=== PATIENT | female | born 1985 | race Caucasian/White ===

== ENCOUNTER 2023-08-21 20:17 | Emergency (ER) | payer OTHER, SELFPAY ==
[2023-08-21 20:23] VITALS: BP 146/84; PULSE 78; RESP 18; TEMP 36.4; O2SAT 98; BMI 38.0
--- NOTE | 2023-08-21 20:35 | ED_ITS ---
HPI - Nausea/Vomiting/Diarrhea General: Chief complaint: Nausea/Vomiting/Diarrhea Stated complaint: posible poison n/v/d..anxiety Time Seen by Provider: 08/21/23 20:34 History of Present Illness: 37-year-old female comes in today for co mplaints of nausea vomiting and some diarrhea after eating some wild vitamins. Patient appears nontoxic. Patient appears in no acute distress. Patient brought a sample of the onion to verify what she had eaten. Associated nausea: Yes Associated symtoms: Reports nausea Review of Systems General: Reports: 10 or more systems reviewed and unremarkable except in HPI and below GI: Reports: nausea, vomiting and diarrhea Physical Exam Const: COMMON NORMALS: alert HENMT: COMMON NORMALS: normocephalic HEAD & SCALP: normocephalic Resp: COMMON NORMALS: normal respiratory effort Cardio: COMMON NORMALS: regular rate and regular rhythm RATE: regular rate RHYTHM: regular rhythm GI: COMMON NORMALS: Soft to palpation and non-tender PALPATION: Yes Soft to palpation Back/Pelvis: COMMON NORMALS: thoracic and lumbar spine normal to inspection Extremity: COMMON NORMALS: full ROM Neuro: SENSORIUM/ORIENTATION: Yes alert Skin: COMMON NORMALS: turgor normal GENERAL SKIN EXAM: turgor normal Course Vital Signs: Vital signs: Vital Signs Temperature 97.5 F L 08/21/23 20:23 Pulse Rate 78 08/21/23 20:23 Respiratory Rate 18 08/21/23 20:23 Blood Pressure 146/84 08/21/23 20:23 Pulse Oximetry 98 08/21/23 20:23 Oxygen Delivery Me thod Room Air 08/21/23 20:23 MDM - Nausea/Vomiting/Diarrhea Medical Decision Making 37-year-old female comes in today with complaints of nausea and vomiting and diarrhea that started this evening after eating a wild onion. On exam patient appears well. Patient states that she feels better since arriving to the ER and has been able to drink water and hold it down. Patient appears nontoxic. Abdomen is soft and nontender. Skin was warm and dry. Vital signs are normal. Differential diagnosis includes food poisoning, gastroenteritis, gallbladder disease, enterocolitis. No signs of severe illness or injury is noted at this time. Reassured patient that the plan she brought and appears to be a domestic onion. Suspect them probably was and that went wild and patient should do well. Discussed reasons for follow-up or return to the ER for worsening symptoms. No radiology studies performed this visit Discharge Plan Discharge Patient Disposition: Home Clinical Impression: Food poisoning Condition: Stable Discharge Orders: Discharge ED (Routine); Ordered 08/21/23 Ordered By: Jonny Perez Discharge Diet: Usual diet Discharge Activity: Increase activity as tolerated Patient Instructions: Food Poisoning (ED) Activity Restrictions/Additional Instructions: Drink plenty water and fluids. Frequent sips of fluids and to maintain hydration. Follow-up with primary care as needed. Return to ED for worsening symptoms such as high fever, blood in vomit or stool, or worsening abdominal pain. Most people resolve food poisoning within 24 to 48 hours. Coding Level of Care Code ED Science Specialist for Corry Eden
[2023-08-21 21:16] VITALS: BP 127/86; PULSE 74; RESP 18; O2SAT 96
== END 2023-08-21 21:17 | disposition home or self-care (01) ==
PROVIDERS: Emergency Provider Nurse Practitioner Family
DX: A05.9 Bacterial foodborne intoxication, unspecified (principal)
CPT/HCPCS: 99281

== ENCOUNTER 2024-05-14 01:00 | Emergency (ER) | payer OTHER, SELFPAY ==
[2024-05-14 01:07] VITALS: BP 131/79; PULSE 83; RESP 18; TEMP 36.5; O2SAT 97; BMI 39.5
[2024-05-14 01:30] VITALS: BP 105/77; PULSE 80; RESP 16; O2SAT 93
[2024-05-14 02:48] VITALS: BP 132/71; PULSE 83; O2SAT 96
[2024-05-14 02:50] LABS: Basophils % 0.3 %; Eosinophils % 0.3 %; Hematocrit 41.6 % (36-47); Lymphocytes # 1.1 10^3/uL (0.8-4.8); Lymphocytes % 12.8 %; Mean Corpuscular HGB Conc 31.7 g/dL (30-55); Mean Corpuscular Hemoglobin 25.2 pg (27-33); Mean Corpuscular Volume 79.4 fl (85-98); Mean Platelet Volume 10.5 fL (7.4-10.4); Monocytes # 0.5 10^3/uL (0.2-0.9); Monocytes % 5.6 %; Neutrophils # 7.12 10^3/uL (1.8-7.7); Neutrophils % 80.9 %; Nucleated Red Blood Cells % 0 %; Platelet Count 273 10^3/cmm (157-399); Red Blood Count 5.24 10^6/uL (3.85-5.65); Red Cell Distribution Width 13.3 % (12.1-15.1); White Blood Count 8.81 10^3/uL (3.29-11.43)
[2024-05-14] MEDS: sodium chloride 0.9% 1,000 ML 999 ML IV (03:02)
[2024-05-14 03:14] LABS: Alanine Aminotransferase 24 U/L (0-33); Albumin Level 4.3 g/dL (3.5-5.2); Alkaline Phosphatase 98 U/L (35-105); Anion Gap 14.1 (5-19); Aspartate Amino Transferase 17 U/L (0-32); Blood Urea Nitrogen 8 mg/dL (6-20); Calcium 9.7 mg/dL (8.5-10.5); Carbon Dioxide 25 mmol/L (22-29); Chloride 103 mmol/L (98-107); Creatinine Clr Calc Pharmacy 168.2559; Globulin 3.1 g/dL (1.3-4.6); Glomerular Filtration Rate 110.7 mL/min (90-130); Glucose 114 mg/dL (65-115); Osmolality Calculated 285 mOsm/kg (285-295); Potassium 4.1 mmol/L (3.5-5.1); Sodium 138 mmol/L (136-145); Total Bilirubin 0.3 mg/dL (0.15-1.2); Total Protein 7.4 g/dL (6.6-8.7)
[2024-05-14 03:25] LABS: Bilirubin Urine Negative (Negative); Blood Urine Negative (Negative); Glucose Urine UA Negative (Normal); Ketones Urine Negative (Negative); Leukocyte Esterase Urine Negative (Negative); Nitrate Urine Negative (Negative); Protein Urine Negative (Negative); Specific Gravity, Urine 1.001 (1.005-1.030); Urine Appearance Clear (CLEAR); Urine Color Yellow (Yellow); Urobilinogen Urine 0.2 mg/dL (Negative)
[2024-05-14 03:29] VITALS: BP 112/72; PULSE 78; O2SAT 93
[2024-05-14 03:30] LABS: Add Urine Microscopic? YES; Bacteria Urine Trace /hpf; Hyaline Casts Urine 0-4 /lpf; RBC Urine 0-2 /hpf (0-2); Squamous Epithelial Cell Urine 0-5 /hpf (0-5); WBC Urine 0-5 /hpf (0-5)
[2024-05-14 04:18] VITALS: BP 101/69; PULSE 76; O2SAT 93
--- NOTE | 2024-05-14 04:37 | ED_ITS ---
HPI - Syncope 2 General: Chief Complaint: Syncope Stated Complaint: ABD Pain Time Seen by Provider: 05/14/24 01:57 Source: patient and family Mode of arrival: ambulatory Limitations: no limitations History of Present Illness: Patient came here for an episode of syncope. She reports she has having anxiety attack in bed so she went to the kitchen to eat something the movie her sugar was low and when she was eating something she started to feel lightheaded again and so she laid down on the floor her put her feet up and she almost passed out. She made it back to her bed and after being there went to go to the restroom after going to the restroom she was getting back to the bed and she passed out completely for a short moment. No fall, no head injury no seizure activity. Related Data Allergies Allergy/AdvReac Type Severity Reaction Status Date / Time No Known Allergies Allergy Verified 08/21/23 20:28 Review of Systems 2 General: Reports: 10 or more systems reviewed and unremarkable except in HPI and below [facility] ED 2 Female Reproductive History: Date of last menstrual period: 04/23/24 Physical Exam 2 Const: COMMON NORMALS: no acute distress, patient oriented x3, healthy appearing, alert and well nourished GENERAL APPEARANCE: well kempt and well developed NUTRITIONAL APPEARANCE: obese HENMT: COMMON NORMALS: normocephalic, atraumatic, external ears normal and moist oral mucous membranes HEAD & SCALP: normocephalic and atraumatic E XTERNAL EAR: Yes external ears normal Eye: COMMON NORMALS: Equal, round and reactive pupils present, EOMs intact bilaterally and conjunctivae normal CONJUNCTIVA: Yes conjunctivae normal P UPIL: Yes Equal, round and reactive pupils present Neck/C-Spine: COMMON NORMALS: full ROM, no lymphadenopathy and supple Chest: CHEST: Yes Symmetrical chest wall rise and No Surgical scars present (Chest) Resp: COMMON NORMALS: normal respiratory effort, No retractions, No use of accessory muscles and clear to auscultation bilaterally AUSCULTATION: clear to auscultation bilaterally Cardio: COMMON NORMALS: regular rate, regular rhythm, S1 normal heart sound present, S2 normal heart sound present, No gallops present (Cardio), No clicks present (Cardio), No murmurs present (Cardio) and No rub (Cardio) RATE: r egular rate RHYTHM: regular rhythm HEART SOUNDS: S1 normal heart sound present, S2 normal heart sound present and no murmurs PERIPHERAL PULSES: o ther (Radial pulses 2+ and symmetric) GI: COMMON NORMALS: Soft to palpation, non-tender and no masses INSPECTION: No abdominal distension PALPATION: Yes Soft to palpation, No Guarding due to palpation present (GI) and No Rebound tenderness present : COMMON NORMALS: Yes no CVA tenderness BLADDER/KIDNEY EXAM: Yes no CVA tenderness Back/Pelvis: COMMON NORMALS: no CVA tenderness Extremity: COMMON NORMALS: normal to inspection, full ROM, capillary refill normal and no clubbing, cyanosis or edema Neuro: COMMON NORMALS: patient oriented x3 SENSORIUM/ORIENTATION: Yes alert Psych: APPEARANCE: Yes well kempt Skin: COMMON NORMALS: no rashes or lesions noted, no wounds, turgor normal and no jaundice GENERAL SKIN EXAM: no rashes or lesions noted and turgor normal Course 2 Vital Signs: Vital signs: Vital Signs Temperature 97.7 F 05/14/24 01:07 Pulse Rate 76 05/14/24 04:18 Respiratory Rate 16 05/14/24 01:30 Blood Pressure 101/69 05/14/24 04:18 Pulse Oximetry 93 05/14/24 04:18 Oxygen Delivery Me thod Room Air 05/14/24 04:18 MDM - Syncope Medical Decision Making Urine shows small amount of hyaline cast. Otherwise labs are unremarkable. Likely patient was mildly dehydrated and has a tendency for vasovagal syncope or orthostatic hypotension along with her anxiety attacks. With her anxiety attack is the main factor likely suggest a vasovagal type. Either way patient's labs are fine she is improved with fluids and will be discharged home. Differential Diagnosis Likely syncope due to orthostatic hypotension, vasovagal syncope and dehydration Medical Records I reviewed the patient's medical records. Lab Data I reviewed the patient's lab results. 05/14/24 02:43 05/14/24 02:43 Laboratory Results WBC 8.81 10^3/uL (3.29-11.43) 05/14/24 02:43 RBC 5.24 10^6/uL (3.85-5.65) 05/14/24 02:43 Hgb 13.20 g/dL (11.27-16.99) 05/14/24 02:43 Hct 41.6 % (36-47) 05/14/24 02:43 MCV 79.4 fl (85-98) L 05/14/24 02:43 MCH 25.2 pg (27-33) L 05/14/24 02:43 MCHC 31.7 g/dL (30-55) 05/14/24 02:43 RDW 13.3 % (12.1-15.1) 05/14/24 02:43 Plt Count 273 10^3/cmm (157-399) 05/14/24 02:43 MPV 10.5 fL (7.4-10.4) H 05/14/24 02:43 Neut % (Auto) 80.9 % 05/14/24 02:43 Lymph % (Auto) 12.8 % 05/14/24 02:43 Blair % (Auto) 5.6 % 05/14/24 02:43 Eos % (Auto) 0.3 % 05/14/24 02:43 Baso % (Auto) 0.3 % 05/14/24 02:43 Neut # (Auto) 7.12 10^3/uL (1.8-7.7) 05/14/24 02:43 Lymph # (Auto) 1.1 10^3/uL (0.8-4.8) 05/14/24 02:43 Blair # (Auto) 0.5 10^3/uL (0.2-0.9) 05/14/24 02:43 Eos # (Auto) 0.0 10^3/uL (0.0-0.8) 05/14/24 02:43 Baso # (Auto) 0.0 10^3/uL (0.0-0.1) 05/14/24 02:43 Nucleated RBC % (auto) 0 % 05/14/24 02:43 Nucleated RBCs # 0.0 /100WBC 05/14/24 02:43 Sodium 138 mmol/L (136-145) 05/14/24 02:43 Potassium 4.1 mmol/L (3.5-5.1) 05/14/24 02:43 Chloride 103 mmol/L (98-107) 05/14/24 02:43 Carbon Dioxide 25 mmol/L (22-29) 05/14/24 02:43 Anion Gap 14.1 (5-19) 05/14/24 02:43 BUN 8 mg/dL (6-20) 05/14/24 02:43 Creatinine 0.6 mg/dL (0.5-0.9) 05/14/24 02:43 GFR Calculation 110.7 mL/min (90-130) 05/14/24 02:43 Glucose 114 mg/dL (65-115) 05/14/24 02:43 Calculated Osmolality 285 mOsm/kg (285-295) 05/14/24 02:43 Calcium 9.7 mg/dL (8.5-10.5) 05/14/24 02:43 Total Bilirubin 0.3 mg/dL (0.15-1.2) 05/14/24 02:43 AST 17 U/L (0-32) 05/14/24 02:43 ALT 24 U/L (0-33) 05/14/24 02:43 Alkaline Phosphatase 98 U/L (35-105) 05/14/24 02:43 Total Protein 7.4 g/dL (6.6-8.7) 05/14/24 02:43 Albumin 4.3 g/dL (3.5-5.2) 05/14/24 02:43 Globulin 3.1 g/dL (1.3-4.6) 05/14/24 02:43 Urine Color Yellow (Yellow) 05/14/24 03:00 Urine Appearance Clear (CLEAR) 05/14/24 03:00 Urine pH 7.0 (5-7) 05/14/24 03:00 Ur Specific [place] 1.001 (1.005-1.030) L 05/14/24 03:00 Urine Protein Negative (Negative) 05/14/24 03:00 Urine Glucose (UA) Negative (Normal) 05/14/24 03:00 Urine Ketones Negative (Negative) 05/14/24 03:00 Urine Blood Negative (Negative) 05/14/24 03:00 Urine Nitrate Negative (Negative) 05/14/24 03:00 Urine Bilirubin Negative (Negative) 05/14/24 03:00 Urine Urobilinogen 0.2 mg/dL (Negative) 05/14/24 03:00 Ur Leukocyte Esterase Negative (Negative) 05/14/24 03:00 Urine RBC 0-2 /hpf (0-2) 05/14/24 03:00 Urine WBC 0-5 /hpf (0-5) 05/14/24 03:00 Ur Squamous Epith Cells 0-5 /hpf (0-5) 05/14/24 03:00 Amorphous Sediment Not Reportable 05/14/24 03:00 Urine Bacteria Trace /hpf (NONE) 05/14/24 03:00 Hyaline Casts 0-4 /lpf H 05/14/24 03:00 No radiology studies performed this visit Discharge Plan Discharge Patient Disposition: Home Clinical Impression: Vasovagal syncope, Dehydration Condition: Stable Discharge Orders: Discharge ED (Routine); Ordered 05/14/24 Ordered By: Logan Caballero Discharge Diet: Usual diet Discharge Activity: Resume usual activity and Increase activity as tolerated Patient Instructions: Syncope (ED) Coding Level of Care Code ED Group Activities Aide for Corry Eden
[2024-05-14 05:40] VITALS: BP 114/70; PULSE 80; RESP 16; O2SAT 95
== END 2024-05-14 05:00 | disposition home or self-care (01) ==
PROVIDERS: Emergency Provider Emergency Medicine
DX: R55 Syncope and collapse (principal); E86.0 Dehydration
CPT/HCPCS: 80053; 81001; 85025; 96360; 96361; 99284; J7030

== ENCOUNTER → 2024-06-22 08:04 | Outpatient (BNVA) | payer OTHER, SELFPAY | PROVIDERS: PCP Family Medicine; Visit Provider Family Medicine | DX: Z00.00 Encounter for general adult medical examination without abnormal findings (principal); Z13.6 Encounter for screening for cardiovascular disorders; R53.81 Other malaise; R53.83 Other fatigue; M25.50 Pain in unspecified joint; E55.9 Vitamin D deficiency, unspecified; E03.9 Hypothyroidism, unspecified; Z51.81 Encounter for therapeutic drug level monitoring | CPT/HCPCS: 80053; 80061; 82306; 82607; 84443; 85025; 85651; 86038; 86141; 86431 ==

== ENCOUNTER 2024-08-02 10:55 | Outpatient (CLI) | payer OTHER, SELFPAY ==
--- NOTE | 2024-08-02 11:15 | MM_ITS ---
WS: [id number] BILATERAL SCREENING DIGITAL TOMOSYNTHESIS MAMMOGRAM WITH CAD BILATERAL BREAST ULTRASOUND, COMPLETE HISTORY: Screening mammogram COMPARISON: None available. Bilateral CC and MLO views with tomosynthesis and synthetic mammography submitted. Computer aided detection analyzed. Breast composition: There are scattered areas of fibroglandular density. No suspicious masses, microcalcifications or architectural distortion. No suspicious masses or distortion. A few benign calcifications LEFT breast. Bilateral breast ultrasound, complete. Ultrasound is performed of all clock face is within each breast including the axilla and retroareolar. No masses or distortion identified. Benign axillary lymph nodes. No solid or cystic mass or skin thickening. MM/MM scr BI tomosynthesis [id number] IMPRESSION: BI-RADS: 2 - Benign. FOLLOW UP: 1 Year Follow-up
--- NOTE | 2024-08-02 11:45 | US_ITS ---
NOTE: Report was unsigned for reason: Order was edited. Original Signature date and time was: 08/02/2024 @ 1129 WS: [id number] BILATERAL SCREENING DIGITAL TOMOSYNTHESIS MAMMOGRAM WITH CAD BILATERAL BREAST ULTRASOUND, COMPLETE HISTORY: Screening mammogram COMPARISON: None available. Bilateral CC and MLO views with tomosynthesis and synthetic mammography submitted. Computer aided detection analyzed. Breast composition: There are scattered areas of fibroglandular density. No suspicious masses, microcalcifications or architectural distortion. No suspicious masses or distortion. A few benign calcifications LEFT breast. Bilateral breast ultrasound, complete. Ultrasound is performed of all clock face is within each breast including the axilla and retroareolar. No masses or distortion identified. Benign axillary lymph nodes. No solid or cystic mass or skin thickening. [facility] US/US breast LT complete [id number] IMPRESSION: BI-RADS: 2 - Benign. FOLLOW UP: 1 Year Follow-up
== END 2024-08-02 10:56 | disposition home or self-care (01) ==
LOC: RAD 10:56
PROVIDERS: PCP Family Medicine; Visit Provider Family Medicine
DX: Z12.31 Encounter for screening mammogram for malignant neoplasm of breast (principal); R92.323 Mammographic fibroglandular density, bilateral breasts; R92.1 Mammographic calcification found on diagnostic imaging of breast; R59.0 Localized enlarged lymph nodes
CPT/HCPCS: 76641; 77063; 77067